=== PATIENT | female | born 1985 | race Caucasian/White ===

== ENCOUNTER 2018-08-20 09:00 | Emergency (ER) | payer OTHER ==
[~2018-08-20] VITALS: Ht 165.1 cm; Wt 63.5 kg
[2018-08-20 09:13] VITALS: BP 133/84
--- NOTE | 2018-08-20 09:19 | NUR ---
LEFT FACIAL SWELLING X YESTERDAY---LEFT UPPER MOLAR PAIN DENIES INJURY
--- NOTE | 2018-08-20 10:06 | NUR ---
DR FRAUSTO AT BEDSIDE FOR PT EVALUATION
[2018-08-20] MEDS ORDERED: CLINDAMYCIN 600 MG/4 ML VIAL IM ONE (10:15)
[2018-08-20] MEDS ORDERED: KETOROLAC 60 MG/2 ML VIAL IM ONE (10:15)
[2018-08-20] MEDS ORDERED: DEXAMETHASONE 10 MG/ML VIAL IM ONE (10:55)
[2018-08-20] MEDS ORDERED: diphenhydrAMINE 50 MG/ML VIAL IM ONE (10:55)
--- NOTE | 2018-08-20 10:56 | NUR ---
AT 1056,PT WALKED TO NM , STATED SHE IS SWEATING AND SHE FEELS SHE WILL PASS OUT, ASSISTED PT BACK TO BED. BEDSIDE MONITOR SHOWS BP 102/64, HR 81, O2 SATS 98%. RR 16. NOTIFIED DR. FRAUSTO. DR. FRAUSTO ORDERED BENADRYL AND DECADRON. [id number], PT STATED SHE FEELS FINE AND REFUSED BENADRYL AND DECADRON. AT BEDSIDE.
--- NOTE | 2018-08-20 11:16 | NUR ---
PT REFUSED BENADRYL AND DECADRON MEDICATION.
[2018-08-20 12:06] VITALS: BP 108/72
--- NOTE | 2018-08-20 12:07 | NUR ---
Patient discharged with v/s stable. Written and verbal after care instructions given and explained. Patient alert, oriented and verbalized understanding of instructions. Ambulatory with steady gait. All questions addressed prior to discharge. ID band removed. Patient advised to follow up with PMD. Rx of CLINDAMYCIN/ FIORICET given. Patient educated on indication of medication including possible reaction and side effects. Opportunity to ask questions provided and answered.
== END 2018-08-20 12:05 | disposition home or self-care (01) ==
LOC: MED 09:00
DX: K04.7 Periapical abscess without sinus (principal); R55 Syncope and collapse; Z88.0 Allergy status to penicillin
CPT/HCPCS: 96372; 99283; J1100; J1200; J1885; J3490

== ENCOUNTER 2018-12-27 23:36 | Inpatient (IN) | payer OTHER ==
[~2018-12-27] VITALS: Ht 165.1 cm; Wt 68.5 kg
[2018-12-27 23:52] VITALS: BP 97/58
--- NOTE | 2018-12-27 23:56 | NUR ---
PT TRIAGED, SENT BACK TO LOBBY AWAITING FOR BED
--- NOTE | 2018-12-28 00:01 | NUR ---
PT TAKEN TO BED 1
--- NOTE | 2018-12-28 00:09 | NUR ---
Dr. Mane examining patient.
--- NOTE | 2018-12-28 00:12 | NUR ---
33 F BIB SELF AND FRIEND PRESENTS TO ED C/O HEAVY VAGINAL BLEEDING OFF AND ON S/P D/C (11/25/18) X 1 MONTH. PT STATES THAT SHE BLEEDS EVERY DAY, PERIODICALLY THROUGHOUT DAY. PT STATES "IT STARTS OUT OF NO WHERE. I HAVE TO JAQUEZ TO THE TOILET AND IT COMES GUSHING OUT OF ME FOR 30 MINTUES". PT REPORTS VERY MILD 2/10 ABDOMINAL CRAMPING. DENIES LOWER BACKPAIN, NVD, OR FEVER. PALE MUCOUS MEMBRANES NOTED. -- PT AWAKE, A/O X 4. APPEARS ANXIOUS, NERVOUS. ANSWERS QUESTIONS IN FULL, COMPLETE SENTENCES. BEHAVIOR AGE APPROPRIATE. -- SKIN PALE, WAMR, DRY. TONGUE AND CONJUNCTIVA PALE. BREATHING EVEN, UNLABORED. PMH-- C-SECTIONS X 2 RX-- DENIES
[2018-12-28] MEDS ORDERED: NACL 0.9% 1,000 ML IV ONE (00:15)
--- NOTE | 2018-12-28 00:20 | NUR ---
RN DRAWING LABS AT BEDSIDE.
--- NOTE | 2018-12-28 00:25 | NUR ---
PT C/O LIGHTHEADEDNESS AND DIZZINESS. BP 96/60. FLUIDS RUNNING WIDE OPEN. PT PLACED IN [place] POSITION. WILL CONTINUE TO MONITOR.
[2018-12-28 00:39] LABS: EOSINOPHILS # (AUTO) 0.1 K/uL (0-0.4); EOSINOPHILS % (AUTO) 0.9 % (0.0-4.0); MONOCYTES # (AUTO) 0.6 K/uL (0.8-1.0); WHITE BLOOD COUNT (AUTO) 9.3 K/uL (4.8-10.8)
[2018-12-28 00:48] LABS: BASOPHILS % (AUTO) 0.2 % (0.0-2.0); LYMPHOCYTES # (AUTO) 2.3 K/uL (2.5-16.5); LYMPHOCYTES % (AUTO) 24.7 % (20.5-51.1); MEAN CORPUSCULAR HEMOGLOBIN 30 pg (27-31); MEAN CORPUSCULAR HGB CONC 33 g/dL (33-37); MEAN CORPUSCULAR VOLUME 90.2 fL (80-94); MONOCYTES % (AUTO) 6.7 % (1.7-9.3); NEUTROPHILS # (AUTO) 6.2 K/uL (1.8-7.7); NEUTROPHILS % (AUTO) 67.5 % (42.2-75.2); PLATELET COUNT (AUTO) 476 K/uL (140-450); RED CELL DISTRIBUTION WIDTH 13.4 % (11.6-13.7)
[2018-12-28 00:56] LABS: ALBUMIN 3.5 g/dL (3.4-5.0); ANION GAP 9.7 (8-16); CARBON DIOXIDE 28.5 mmol/L (21-32); POTASSIUM 3.2 mmol/L (3.5-5.1); TOTAL BILIRUBIN 0.2 mg/dL (0.0-1.0)
--- NOTE | 2018-12-28 01:04 | NUR ---
PT TAKEN TO ULTRASOUND
--- NOTE | 2018-12-28 01:14 | NUR ---
PT RETURN FROM ULTRASOUND
[2018-12-28 01:15] LABS: PROTHROMBIN TIME 10.1 secs (10.8-13.4)
[2018-12-28 01:57] LABS: APPEARANCE,URINE BLOODY (CLEAR); BILIRUBIN,URINE NEGATIVE (NEGATIVE); BLOOD, URINE 3+ (NEGATIVE); COLOR,URINE RED (YELLOW); LEUKOCYTE ESTERASE ,URINE 1+ (NEGATIVE); NITRITE, URINE POSITIVE (NEGATIVE); PH,URINE 5.5 (5.0-9.0); UGLUCOSE NEGATIVE (NEGATIVE)
[2018-12-28 02:02] LABS: HEMATOCRIT 19.9 % (36-48); HEMOGLOBIN 6.6 g/dL (12.0-16.0)
--- NOTE | 2018-12-28 02:18 | NUR ---
DR. LANE REEVALUATING AT BEDSIDE.
--- NOTE | 2018-12-28 02:22 | NUR ---
CONSENT FORM FOR BLOOD TRANSFUSION SIGNED AND WITNESSED.
--- NOTE | 2018-12-28 02:30 | NUR ---
PT RESTING COMFORTABLY IN BED. BP STABLE; PT STILL REPORTS SOME DIZZINESS WITH MOVEMENT. SKIN PINK, WARM, DRY. BREATHING EVEN, UNLABORED. PT IN LOW FOWLERS POSITION.
[2018-12-28 03:00] LABS: RBC,URINE TOO NUMEROUS TO COUN /HPF (0-5)
--- NOTE | 2018-12-28 03:26 | NUR ---
PT SITTING QUIETLY IN BED WITH BOYFRIEND AT BEDSIDE. NO COMPLAINTS AT THIS TIME. VSS.
[2018-12-28] MEDS ORDERED: HYDROcodone/APAP 5/325 MG 1 TAB TAB PO PRN (03:35)
[2018-12-28] MEDS ORDERED: ALBUTEROL 0.083% 2.5 MG/3 ML NEBU INH PRN (03:35)
[2018-12-28] MEDS ORDERED: ACETAMINOPHEN 325 MG TAB PO PRN (03:35)
[2018-12-28] MEDS ORDERED: ONDANSETRON 4 MG/2 ML VIAL IVP PRN ×2 (03:35→15:15)
[2018-12-28] MEDS ORDERED: MORPHINE SULFATE 4 MG/ML SYR IVP PRN (03:35)
--- NOTE | 2018-12-28 04:12 | NUR ---
Patient will be admitted to care of Dr. Monahan. Admited to Med/Surg. Will go to room 126A. Belongings list completed. Report to SHOBHA Gonzalez.
--- NOTE | 2018-12-28 04:15 | NUR ---
ADMITTED THIS 33 YEAR OLD FEMALE FROM ER PER WHEELCHAIR WITH CC OF VAGINAL BLEEDING FOR A MONTH, AMBULATED TO BED WITH STEADY GAIT BUT WITH SLIGHT DIZZINESS, VITAL SIGNS STABLE, NO ACTIVE BLEEDING AT THIS TIME, DENIES ANY PAIN, ORIENTED TO ROOM AND CALL LIGHT, PLAN OF CARE DISCUSSED, AWARE PT IS GETTING 2 UNITS PRBC ONCE AVAILABLE, BLOOD TRANSFUSION CONSENT ALREADY SIGNED, ALL NEEDS ATTENDED, CALL LIGHT WITHIN REACH.
[2018-12-28 04:30] VITALS: BP 106/72
[2018-12-28] MEDS: NACL 0.9% 1,000 ML IV SCH ×2 (04:32→16:51)
--- NOTE | 2018-12-28 06:00 | NUR ---
PT SLEEPING, NO SIGNS OF DISTRESS, SIGNIFICANT OTHER AT BEDSIDE, IVF INFUSING WELL, AWAITING PRBC, MONITORED CLOSELY.
--- NOTE | 2018-12-28 07:05 | NUR ---
PT AWAKE, NO SIGNS OF DISTRESS, REPORT GIVEN TO SHOBHA SEARS FOR CONTINUITY OF CARE.
--- NOTE | 2018-12-28 07:10 | NUR ---
RECEIVED PT FROM MOOSE HUNTER NURSEDEVIN, PT IS AWAKE AND LYING ON THE BED WITH SIDE RAILS UP AND CALL LIGHT WITHIN REACH, PERIPHERAL LINE ON THE LEFT AC G. 20 WITH NS INFUSING AT 75ML/HR, PT DENIES PAIN AND NO SIGN OF DISTRESS NOTED. WILL CONTINUE TO MONITOR PT.
--- NOTE | 2018-12-28 07:40 | NUR ---
DR. HORAN IS IN THE PT'S ROOM AND TALKING TO PT AND TELLING THE PT ABOUT THE POC, AND FOR THE POSSIBLE DILATATION AND CURETTAGE THAT WILL BE DONE TO HER AND PT VERBALIZED UNDERSTANDING.
[2018-12-28 08:00] VITALS: BP 99/62
--- NOTE | 2018-12-28 08:06 | NUR ---
PATIENT HAS BEEN SCREENED AND CATEGORIZED LOW NUTRITION RISK. PATIENT WILL BE SEEN WITHIN 7 DAYS OF ADMISSION. 01/03/[address]
[2018-12-28 09:49] LABS: BASOPHILS % (AUTO) 0.4 % (0.0-2.0); EOSINOPHILS # (AUTO) 0.1 K/uL (0-0.4); EOSINOPHILS % (AUTO) 1.1 % (0.0-4.0); LYMPHOCYTES # (AUTO) 1.8 K/uL (2.5-16.5); LYMPHOCYTES % (AUTO) 23.2 % (20.5-51.1); MEAN CORPUSCULAR HEMOGLOBIN 30 pg (27-31); MEAN CORPUSCULAR HGB CONC 33 g/dL (33-37); MEAN CORPUSCULAR VOLUME 91.7 fL (80-94); MONOCYTES # (AUTO) 0.6 K/uL (0.8-1.0); NEUTROPHILS # (AUTO) 5.1 K/uL (1.8-7.7); NEUTROPHILS % (AUTO) 67.3 % (42.2-75.2); PLATELET COUNT (AUTO) 422 K/uL (140-450); RED BLOOD CELL COUNT(AUTO) 1.97 MIL/uL (4.20-5.40); RED CELL DISTRIBUTION WIDTH 13.4 % (11.6-13.7); WHITE BLOOD COUNT (AUTO) 7.6 K/uL (4.8-10.8)
[2018-12-28 10:00] LABS: ANION GAP 12.6 (8-16); CARBON DIOXIDE 24.3 mmol/L (21-32); CREATININE 0.7 mg/dL (0.6-1.3); POTASSIUM 3.9 mmol/L (3.5-5.1)
--- NOTE | 2018-12-28 10:01 | NUR ---
PT SIGNED THE CONSENT FOR THE DILATATION AND CURETTAGE THAT WILL BE DONE TODAY BY DR. HORAN.
[2018-12-28] MEDS ORDERED: POTASSIUM CHLORIDE 20 MEQ, LIDOCAINE MPF 1% 25 MG in NACL 0.9% 250 ML IV SCH (10:30)
[2018-12-28 10:35] LABS: HEMOGLOBIN 5.9 g/dL (12.0-16.0)
--- NOTE | 2018-12-28 11:17 | NUR ---
PT IS AWAKE AND POTASSIUM IV WAS STARTED TO PT NOW FOR THE K LEVEL OF 3.2. WILL MONITOR PT.
--- NOTE | 2018-12-28 12:15 | NUR ---
BLOOD TRANSFUSION WAS STARTED TO PT NOW.
--- NOTE | 2018-12-28 13:33 | NUR ---
CONTACTED PATIENT'S PCP [facility] OFF[facility] AT [phone], ABLE TO SPEAK TO [place] FOR POST DISCHARGE APPOINTMENT. SHE PROVIDED ME JAN 09, [address] DEUTSCH [address] DILLON. ADDRESS TO THE CLINIC IS [address] [place] [address] (2ND FLOOR)[place] [phone]. COPY OF THE APPOINTMENT PROVIDED TO THE PATIENT.
--- NOTE | 2018-12-28 14:39 | NUR ---
PT IS OFF THE UNIT NOW FOR A DILATATION AND CURETTAGE, BLOOD TRANSFUSION IS STILL GOING., BP IS 107/72, PULSE IS 85, PT IS STABLE NOW.
[2018-12-28] MEDS ORDERED: fentaNYL 0.05 MG/ML VIAL ONE (14:50)
[2018-12-28] MEDS ORDERED: MIDAZOLAM 2 MG/2 ML VIAL ONE (14:50)
--- NOTE | 2018-12-28 15:07 | NUR ---
PT OUT OF ROOM FOR A PROCEDURE AT OR, PT WILL BE ASSESS AT LATER TIME.
[2018-12-28] MEDS ORDERED: MEPERIDINE 25 MG/ML SYR IVP PRN (15:15)
[2018-12-28] MEDS ORDERED: diphenhydrAMINE 50 MG/ML VIAL IVP PRN (15:15)
[2018-12-28] MEDS ORDERED: HYDROmorphone 1 MG/ML AMP IVP PRN (15:15)
--- NOTE | 2018-12-28 16:30 | NUR ---
PT IS BACK TO ROOM NOW FROM THE DILATATION AND CURETTAGE.
--- NOTE | 2018-12-28 16:44 | NUR ---
SW attempted to conduct assessment with patient. Patient was in OR. SW/CM will follow up.
[2018-12-28] MEDS: LACTATED RINGERS 1,000 ML IV SCH ×2 (16:48→23:35)
--- NOTE | 2018-12-28 17:10 | NUR ---
BLOOD TRANSFUSION OF SEA SECOND UNIT OF PRBC WAS STARTED TO PT NOW.
--- NOTE | 2018-12-28 18:10 | NUR ---
DR. GAY CAME TO PT'S ROOM AND SPOKE TO PT.
[2018-12-28] MEDS ORDERED: NICOTINE TRANSD SYS 14 MG/24 HR PATCH TD SCH (18:15)
--- NOTE | 2018-12-28 18:15 | NUR ---
NICTOTINE PATCH WAS BOLIVAR;LIED TO THE PT'S RT UA, AND WAS ASSISTED TO THE BATHROOM AND BACK TO BED.
--- NOTE | 2018-12-28 19:20 | NUR ---
ENDORSED PT TO MOBILE SERVICE RV TECHNICIAN NURSE, ANTONIETTA FOR CONTINUITY OF CARE.
--- NOTE | 2018-12-28 19:25 | NUR ---
RECEIVED PT FROM RENU RN, PT RESTING ON BED AAOX4 AMBULATORY IV ON LEFT AC ON SECONF UNITS OF BLOOD TRANSFUSION NOT REACTION NOTED PT WILL BE CONTINUE MONITORING INITIAL ASSESSMENT DONE
[2018-12-28 19:50] VITALS: BP 91/56
--- NOTE | 2018-12-28 21:00 | NUR ---
AT 2100 END SECOND UNITS OF BLOOD TRANSFUSION NOT VAGIVAL BLEEDING NOTED PT WILL BE MONITORING
[2018-12-29] VITALS: BP 102/62
--- NOTE | 2018-12-29 | NUR ---
PT SLEEPING WELL , DENIES ANY PAIN OR DISCOMFORT, ON CLOSE MONITORING
--- NOTE | 2018-12-29 03:00 | NUR ---
SPONGE BATH GIVEN LINEN CHANGED PT AMBULATES TO THE RESTROOM VOIDING WELL,
[2018-12-29] MEDS: NACL 0.9% 1,000 ML IV SCH (06:11)
[2018-12-29 06:14] LABS: BASOPHILS % (AUTO) 0.1 % (0.0-2.0); HEMATOCRIT 25.7 % (36-48); HEMOGLOBIN 8.7 g/dL (12.0-16.0); LYMPHOCYTES # (AUTO) 1.2 K/uL (2.5-16.5); LYMPHOCYTES % (AUTO) 12.9 % (20.5-51.1); MEAN CORPUSCULAR HEMOGLOBIN 30 pg (27-31); MEAN CORPUSCULAR HGB CONC 34 g/dL (33-37); MEAN CORPUSCULAR VOLUME 88.2 fL (80-94); MONOCYTES # (AUTO) 0.5 K/uL (0.8-1.0); MONOCYTES % (AUTO) 4.9 % (1.7-9.3); NEUTROPHILS # (AUTO) 7.7 K/uL (1.8-7.7); NEUTROPHILS % (AUTO) 82.1 % (42.2-75.2); PLATELET COUNT (AUTO) 436 K/uL (140-450); RED BLOOD CELL COUNT(AUTO) 2.91 MIL/uL (4.20-5.40); RED CELL DISTRIBUTION WIDTH 14.7 % (11.6-13.7); WHITE BLOOD COUNT (AUTO) 9.3 K/uL (4.8-10.8)
--- NOTE | 2018-12-29 06:36 | NUR ---
PT WILL BE ENDORSED TO DAY SHIFT NURSE FOR CONTINUE OF CARE
--- NOTE | 2018-12-29 06:36 | NUR ---
PT SLEEPING WELL NOT ACTIVE BLEEDING NOTED REMAINSTABLE AT THIS TIME
[2018-12-29 06:53] LABS: CARBON DIOXIDE 23.1 mmol/L (21-32); CREATININE 0.6 mg/dL (0.6-1.3); POTASSIUM 4.1 mmol/L (3.5-5.1)
[2018-12-29 06:55] LABS: MAGNESIUM 1.8 mg/dL (1.8-2.4)
--- NOTE | 2018-12-29 07:30 | NUR ---
RECEIVED REPORT FROM SCARFER RN. PATIENT IS SLEEPING IN BED, ON ROOM AIR, AAO X4. PT IS FULL CODE, NKA, SKIN INTACT. WILL MONITOR AND CONTINUE WITH PLAN OF CARE.
[2018-12-29 08:00] VITALS: BP 96/56
--- NOTE | 2018-12-29 08:46 | NUR ---
Pt awake and alert. No signs of resp distress notes at this time. Family at bedside.
[2018-12-29] MEDS: LACTATED RINGERS 1,000 ML IV SCH (08:47)
[2018-12-29] MEDS ORDERED: NICOTINE TRANSD SYS 14 MG/24 HR PATCH TD SCH (09:00)
--- NOTE | 2018-12-29 12:30 | NUR ---
PATIENT RESTING QUIETLY IN BED. BOYFRIEND AT BEDSIDE, NO COMPLAINTS AT THIS TIME.
[2018-12-29] MEDS ORDERED: TYL3 PO (13:03)
--- NOTE | 2018-12-29 13:15 | NUR ---
PER DR GAY AND DR HORAN, PATIENT HAS BEEN CLEARED TO BE DISCHARGED. INFORMED PATIENT AND WILL BEGIN PAPERWORK.
--- NOTE | 2018-12-29 14:40 | NUR ---
PATIENT SIGNED DISCHARGE PAPERWORK, DISCHARGE PRESCRIPTION HAS BEEN GIVEN. PER PATIENT, SHE CANNOT REACH HER BOYFRIEND TO PICK HER UP BECAUSE HIS PHONE IS AND SHE HAS HIS POULTRY BARN MANAGER WITH HER. PATIENT STATED SHE WOULD LIKE TO WALK HOME SINCE SHE LIVES VERY C[place]SE, ON [address]. INFORMED PATIENT THAT I WILL ASK MY CHARGE NURSE AND GET BACK TO HER.
--- NOTE | 2018-12-29 14:57 | NUR ---
PATIENTS IV HAS BEEN REMOVED, CANNULA INTACT. WRISTBAND, ALLERGY BAND AND C BAND HAS BEEN REMOVED. PATIENT IS DRESSING IN PERSONAL CLOTHING AND HAS GATHERED ALL PERSONAL BELONGINGS.
--- NOTE | 2018-12-30 05:51 | NUR ---
Late entry. Confirmed with RN that 0.9 NS IV 1000ml completed at 0130
== END 2018-12-29 14:55 | disposition home or self-care (01) | DRG 544 ==
LOC: MED 23:36 → MMU 12-28 03:34
PROVIDERS: ADMIT Internal Medicine Pulmonary Disease; ATTEND Internal Medicine Pulmonary Disease
PROC: 30233N1 Transfusion of Nonautologous Red Blood Cells into Peripheral Vein, Percutaneous Approach (ICD-10-PCS; 2018-12-28)
PROC: 10D17ZZ Extraction of Products of Conception, Retained, Via Natural or Artificial Opening (ICD-10-PCS; principal; 2018-12-28 12:00)
DX: O03.4 Incomplete spontaneous abortion without complication (principal); D62 Acute posthemorrhagic anemia; F17.210 Nicotine dependence, cigarettes, uncomplicated; E87.6 Hypokalemia; R73.9 Hyperglycemia, unspecified; O03.33 Metabolic disorder following incomplete spontaneous abortion; O03.1 Delayed or excessive hemorrhage following incomplete spontaneous abortion; Z88.0 Allergy status to penicillin
CPT/HCPCS: 36415; 76830; 80048; 80053; 81001; 83735; 84100; 84702; 85025; 85610; 85730; 86886; 86900; 86901; 86920; 87081; 87086; 88305; 99285; J2001; J2250; J3010; J3480; J7030; J7120; P9016